=== PATIENT | female | born 1945 | race Caucasian/White ===

== ENCOUNTER 2021-09-05 11:49 | Outpatient (CLI) | payer MEDICARE ==
[~2021-09-05 11:49] MED LIST: Iopamidol 300 61% 100 ML VIAL FS ONE
== END 2021-09-05 11:50 | disposition home or self-care (01) ==
LOC: CSHCT 11:49
PROVIDERS: ATTEND Family Medicine
DX: R93.89 Abnormal findings on diagnostic imaging of other specified body structures (principal); R91.8 Other nonspecific abnormal finding of lung field; K76.9 Liver disease, unspecified
CPT/HCPCS: 71260; 82565